=== PATIENT | male | born 2000 | race Caucasian/White ===

== ENCOUNTER 2019-04-15 13:53 | Inpatient (IN) | payer MEDICAID ==
[~2019-04-15] VITALS: Ht 185.4 cm; Wt 81.9 kg
[2019-04-15] MEDS ORDERED: LORazepam 2 MG TABLET PO PRN (18:00)
[2019-04-15] MEDS ORDERED: QUEtiapine FUMARATE 100 MG TABLET PO PRN (18:00)
[2019-04-15 18:14] VITALS: BP 114/88
[2019-04-15] MEDS ORDERED: ACETAMINOPHEN 325 MG TABLET PO PRN (19:45)
[2019-04-16] MEDS: ZOLPIDEM TARTRATE 10 MG TABLET PO PRN ×2 (03:01→20:17)
[2019-04-16 05:14] VITALS: BP 115/73
[2019-04-16 08:11] LABS: BASOPHILS % (AUTO) 0.6 % (0.0-2.0); EOSINOPHILS % (AUTO) 1.5 % (1.0-6.0); HEMOGLOBIN 16.4 g/dL (13.5-17.5); LYMPHOCYTES # (AUTO) 1.9 K/uL (1.0-4.8); LYMPHOCYTES % (AUTO) 32.5 % (22.0-44.0); MEAN CORPUSCULAR HEMOGLOBIN 30.7 pg (26.0-34.0); MEAN CORPUSCULAR HGB CONC 34.2 G/dL (31.0-37.0); MEAN CORPUSCULAR VOLUME 90 fL (80-100); MONOCYTES # (AUTO) 0.5 K/uL (0.1-1.0); MONOCYTES % (AUTO) 8.3 % (2.0-9.0); NEUTROPHILS # (AUTO) 3.3 K/uL (1.8-7.7); NEUTROPHILS % (AUTO) 57.1 % (40.0-70.0); PLATELET COUNT (AUTO) 251 K/uL (150-450); RED BLOOD CELL COUNT(AUTO) 5.34 MIL/uL (4.50-5.90); RED CELL DISTRIBUTION WIDTH 13.5 % (11.5-14.5)
[2019-04-16 08:15] VITALS: BP 119/63
[2019-04-16 08:37] LABS: ALANINE AMINOTRANSFERASE 18 U/L (12-78); ALBUMIN 4.5 g/dL (3.4-5.0); ALKALINE PHOSPHATASE 104 U/L (46-116); ANION GAP 9 mmol/L (8-16); ASPARTATE AMINOTRANSFERASE 16 U/L (15-37); BILIRUBIN,TOTAL 0.8 mg/dL (0.1-1.0); CALCIUM, TOTAL 9.4 mg/dL (8.8-10.5); CARBON DIOXIDE 27 mmol/L (22-29); CHLORIDE 99 mmol/L (98-107); CHOL/HDL RATIO 2.3 (4.2-7.3); CHOLESTEROL 132 mg/dL (131-200); CREATININE 0.82 mg/dL (0.60-1.30); FREE T4 (FREE THYROXINE) 1.07 ng/dL (0.76-1.46); GLOMERULAR FILTR. RATE CALC > 60 mL/min (>60); GLUCOSE,RANDOM 141 mg/dL (70-110); HDL CHOLESTEROL 57 mg/dL (40-60); LDL CHOL (CALC.) 65 mg/dL (0-130); POTASSIUM 3.9 mmol/L (3.5-5.1); SODIUM SERUM 135 mmol/L (136-145); THYROID STIMULATING HORMONE 2.75 uIU/mL (0.36-3.74); TOTAL PROTEIN, SERUM 7.6 g/dL (6.4-8.2); TRIGLYCERIDES 48 mg/dL (15-150); UREA NITROGEN, BLOOD 12 mg/dL (7-18)
[2019-04-16 08:39] LABS: HEMOGLOBIN A1C 5.3 % (4.5-6.2)
[2019-04-16] MEDS: NICOTINE 14 MG/24 HOUR PATCH TD SCH (09:45)
[2019-04-16 16:50] VITALS: BP 114/56
[2019-04-16] MEDS ORDERED: GuaiFENesin/D-METHORPHAN [SUGAR-FREE] 200-20MG/10 ML SYRUP UDCUP PO PRN (17:45)
[2019-04-16] MEDS ORDERED: CYANOCOBALAMIN 1,000 MCG/ML VIAL IM ONE (17:45)
[2019-04-16] MEDS ORDERED: MAGNESIUM HYDROXIDE SUSPENSION 30 ML UDCUP PO PRN (17:45)
[2019-04-16] MEDS ORDERED: OLANZapine 5 MG TABLET PO PRN (17:45)
[2019-04-16] MEDS ORDERED: LOPERAMIDE HCL 2 MG CAPSULE PO PRN (17:45)
[2019-04-16] MEDS ORDERED: TUBERCULIN, PURIFIED PROTEIN DERIVATIVE 5 TU/0.1 ML SYRINGE ID ONE (17:45)
[2019-04-16] MEDS ORDERED: LORazepam 2 MG TABLET PO PRN (17:45)
[2019-04-16] MEDS ORDERED: MAG HYDROX/AL HYDROX/SIMETH ES 30 ML SUSPENSION UDCUP PO PRN (17:45)
[2019-04-16] MEDS ORDERED: HydrOXYzine PAMOATE 50 MG CAPSULE PO PRN (17:45)
[2019-04-16] MEDS ORDERED: PROMETHAZINE HCL 25 MG TABLET PO PRN (17:45)
[2019-04-16] MEDS ORDERED: ACETAMINOPHEN 325 MG TABLET PO PRN (17:45)
[2019-04-16 20:15] VITALS: BP 126/75
[2019-04-16 20:17] VITALS: BP 126/75
[2019-04-16] MEDS ORDERED: DIVALPROEX SODIUM 500 MG ER TABLET PO SCH (21:00)
[2019-04-16] MEDS ORDERED: OLANZapine 7.5 MG TABLET PO SCH (21:00)
[2019-04-17 04:49] VITALS: BP 114/65
[2019-04-17] MEDS ORDERED: LORazepam 2 MG TABLET PO PRN (07:00)
[2019-04-17 08:16] VITALS: BP 114/60
[2019-04-17] MEDS ORDERED: THIAMINE HCL 100 MG TABLET PO SCH (09:00)
[2019-04-17] MEDS: NICOTINE 14 MG/24 HOUR PATCH TD SCH (09:00)
[2019-04-17] MEDS ORDERED: MULTIVITAMINS WITH MINERALS, THERAPEUTIC TABLET PO SCH (09:00)
[2019-04-17] MEDS ORDERED: FOLIC ACID 1 MG TABLET PO SCH (09:00)
[2019-04-17] MEDS ORDERED: NALTREXONE HCL 50 MG TABLET PO SCH (09:00)
[2019-04-17] MEDS: LORazepam 2 MG TABLET PO SCH ×2 (09:22→12:30)
[2019-04-17] MEDS ORDERED: DIVA500T52 PO (12:00)
[2019-04-17] MEDS ORDERED: NALT50TA PO (12:00)
[2019-04-17] MEDS ORDERED: OLAN7.5T9 PO (12:00)
[2019-04-19] MEDS ORDERED: LORazepam 1 MG TABLET PO PRN (07:00)
[2019-04-19] MEDS ORDERED: LORazepam 1 MG TABLET PO SCH (09:00)
[2019-04-19] MEDS ORDERED: LOPERAMIDE HCL 2 MG CAPSULE PO PRN (17:45)
[2019-04-20] MEDS ORDERED: LORazepam 1 MG TABLET PO PRN (07:00)
== END 2019-04-17 15:05 | disposition home or self-care (01) | DRG 750 ==
LOC: B3A 17:52
PROVIDERS: ADMIT Psychiatry & Neurology Psychiatry; ATTEND Psychiatry & Neurology Psychiatry
DX: F25.9 Schizoaffective disorder, unspecified (principal); Z59.0 Homelessness; F12.90 Cannabis use, unspecified, uncomplicated; F90.9 Attention-deficit hyperactivity disorder, unspecified type; F17.210 Nicotine dependence, cigarettes, uncomplicated; Z91.19 Patient's noncompliance with other medical treatment and regimen; Z91.410 Personal history of adult physical and sexual abuse
CPT/HCPCS: 83036; 84439; 84443; 87081; J3420

== ENCOUNTER 2021-06-22 10:59 | Inpatient (IN) | payer MEDICAID ==
[~2021-06-22] VITALS: Ht 185.4 cm; Wt 83.2 kg
[~2021-06-22 10:59] MED LIST: DIVA-80 PO; NALT50TA PO; OLAN7.5T18 PO
[2021-06-22 16:15] VITALS: BP 124/76
[2021-06-22] MEDS ORDERED: INFLUENZA VIRUS VACCINE QVS 2021-22 (6MO+)/PF 60 MCG/0.5 ML SYRINGE IM. ONE (16:30)
[2021-06-22] MEDS: ZOLPIDEM TARTRATE 10 MG TABLET PO PRN (20:08)
[2021-06-23 05:23] VITALS: BP 121/73
[2021-06-23 09:06] VITALS: BP 112/74
[2021-06-23] MEDS: LORazepam 2 MG TABLET PO PRN (09:08)
[2021-06-23] MEDS: HALOPERIDOL 5 MG TABLET PO PRN (09:08)
[2021-06-23] MEDS ORDERED: GuaiFENesin/D-METHORPHAN [SUGAR-FREE] 200-20MG/10 ML SYRUP UDCUP PO PRN (09:45)
[2021-06-23] MEDS ORDERED: CloNIDine HCL 0.1 MG TABLET PO PRN (09:45)
[2021-06-23] MEDS ORDERED: LOPERAMIDE HCL 2 MG CAPSULE PO PRN (09:45)
[2021-06-23] MEDS ORDERED: ACETAMINOPHEN 325 MG TABLET PO PRN (09:45)
[2021-06-23] MEDS ORDERED: PETROLATUM,WHITE 28 GM JELLY TP PRN (09:45)
[2021-06-23] MEDS ORDERED: DOCUSATE SODIUM 100 MG CAPSULE PO PRN (09:45)
[2021-06-23] MEDS ORDERED: ONDANSETRON HCL 4 MG TABLET PO PRN (09:45)
[2021-06-23] MEDS ORDERED: MAGNESIUM HYDROXIDE SUSPENSION 30 ML UDCUP PO PRN (09:45)
[2021-06-23] MEDS ORDERED: NICOTINE 14 MG/24 HOUR PATCH TD PRN (09:45)
[2021-06-23] MEDS ORDERED: MAG HYDROX/AL HYDROX/SIMETH ES 30 ML SUSPENSION UDCUP PO PRN (09:45)
[2021-06-23] MEDS ORDERED: ALBUTEROL SULFATE HFA 90 MCG/PUFF 8 GM INHALER IH PRN (09:45)
[2021-06-23] MEDS: SERTRALINE HCL 50 MG TABLET PO SCH (09:51)
[2021-06-23] MEDS: ARIPiprazole 10 MG TABLET PO SCH (09:51)
[2021-06-23 16:21] VITALS: BP 130/72
[2021-06-24] MEDS: ZOLPIDEM TARTRATE 10 MG TABLET PO PRN ×2 (00:01→20:20)
[2021-06-24] MEDS: LORazepam 2 MG TABLET PO PRN ×3 (02:12→20:20)
[2021-06-24 02:53] VITALS: BP 123/75
[2021-06-24 04:45] VITALS: BP 114/76
[2021-06-24] MEDS: SERTRALINE HCL 50 MG TABLET PO SCH (08:44)
[2021-06-24] MEDS: ARIPiprazole 10 MG TABLET PO SCH (08:44)
[2021-06-24] MEDS: HALOPERIDOL 5 MG TABLET PO PRN (09:51)
[2021-06-24 11:42] VITALS: BP 124/76
[2021-06-24 16:06] VITALS: BP 110/72
[2021-06-25 04:09] VITALS: BP 116/69
[2021-06-25] MEDS: IBUPROFEN 400 MG TABLET PO PRN ×2 (05:16→18:05)
[2021-06-25 08:16] VITALS: BP 118/65
[2021-06-25] MEDS: ARIPiprazole 10 MG TABLET PO SCH (09:15)
[2021-06-25] MEDS: SERTRALINE HCL 50 MG TABLET PO SCH (09:15)
[2021-06-25 16:05] VITALS: BP 132/78
[2021-06-25] MEDS: ZOLPIDEM TARTRATE 10 MG TABLET PO PRN (20:03)
[2021-06-26 01:38] VITALS: BP 128/83
[2021-06-26] MEDS: LORazepam 2 MG TABLET PO PRN (01:38)
[2021-06-26] MEDS: SERTRALINE HCL 50 MG TABLET PO SCH (08:14)
[2021-06-26] MEDS: ARIPiprazole 10 MG TABLET PO SCH (08:14)
[2021-06-26] MEDS ORDERED: SERT-439 PO (10:37)
[2021-06-26] MEDS ORDERED: ARIP10TA38 PO (10:37)
== END 2021-06-26 13:00 | disposition home or self-care (01) | DRG 750 ==
LOC: B3A 15:35
PROVIDERS: ADMIT Psychiatry & Neurology Psychiatry; ATTEND Psychiatry & Neurology Psychiatry
DX: F20.0 Paranoid schizophrenia (principal); R45.851 Suicidal ideations; Z59.00 Homelessness unspecified; F12.10 Cannabis abuse, uncomplicated; G44.209 Tension-type headache, unspecified, not intractable; F10.10 Alcohol abuse, uncomplicated; Z91.013 Allergy to seafood; Z91.51 Personal history of suicidal behavior